=== PATIENT | female | born 1955 | race Caucasian/White ===

== ENCOUNTER 2024-11-23 09:50 | Outpatient (OUT) | payer MEDICARE, SELFPAY ==
--- NOTE | 2024-11-23 10:00 | XR_ITS ---
[facility] [place] [id number] Patient Name: ZAK LYNCH MRN: [id number] date: 1955 Sex: F Assigned Patient Location: [facility] Current Patient Location: [facility] Accession/Order Number: [id number] Exam Date: 11/23/2024 11:55 Report Date: 11/23/2024 11:56 At the request of: KATHERYN TENORIO Procedure: XR ribs LT min 3V w CXR1V PA CHEST WITH 3 VIEWS LEFT RIBS: CLINICAL HISTORY: Fall COMPARISON: None FINDINGS: Heart normal in size. No lung consolidation pneumothorax pleural effusion or free air. No displaced left-sided rib fracture. XR/XR ribs LT min 3V w CXR1V IMPRESSION: No acute findings. Impression dictated by: Rolando Bundy Jr., D.OBelén11/23/2024 11:56 AM Dictation Location: [place] [address] Electronically authenticated by: [id number] Y Date: 11/23/2024 11:56
== END 2024-11-23 09:51 | disposition home or self-care (01) ==
LOC: RAD 09:55
PROVIDERS: PCP Nurse Practitioner Family; Visit Provider Nurse Practitioner Family
DX: R07.81 Pleurodynia (principal); W19.XXXA Unspecified fall, initial encounter
CPT/HCPCS: 71101

== ENCOUNTER 2024-12-03 09:27 | Outpatient (OUT) | payer MEDICARE, SELFPAY ==
--- OUTSIDE RECORDS SUMMARY | 2024-12-03 09:36 | XMS_ITS | CCD ---
Author Organization [facility] Care Team Providers Care Associate Vice President Name Role Phone DR LAURA CASTILLO Admitting Unavailable DR LAURA CASTILLO Attending Unavailable KATHERYN TENORIO Primary Care Unavailable KATHERYN TENORIO Consulting Unavailable KATHERYN TENORIO Admitting Unavailable KATHERYN TENORIO Attending Unavailable KATHERYN TENORIO Primary Care Unavailable Jayden Fofana Consulting Unavailable KATHERYN TENORIO Consulting Unavailable Allergies Allergy Classification Reported Allergen(s) Allergy Type Date of Onset Reaction(s) Facility (1 source) Dextroamphetamine Drug Allergy 5 [facility] Repository Problems Active Problems Problem Classification Problem Date Documented Da te Episodic/Chronic Disorders of lipid metabolism (4 sources) Hyperlipidemia, unspecified; Translations: [HYPERLIPIDEMIA UNSPECIFIED] Onset: 06-22-2022 Chronic Essential hypertension (1 source) Essential (primary) hypertension; Translations: [ESSENTIAL PRIMARY HYPERTENSION] Onset: 06-26-2022 Chronic Osteoporosis (1 source) Age-related osteoporosis without current pathological fracture; Translations: [AGE-REL OSTEOPOR W/O CURR PATH FX] Onset: 12-22-2022 Chronic Other screening for suspected conditions (not mental disorders or infectious disease) (6 sources) Encounter for screening mammogram for malignant neoplasm of breast; Translations: [Encounter for screening for osteoporosis] Onset: 06-26-2022 Episodic Residual codes; unclassified (1 source) Family history of malignant neoplasm of digestive organs; Translations: [FAM HX MALIG NEOPLASM DIGESTIV ORGN] Onset: 12-22-2022 Episodic Substance-related disorders (1 source) Nicotine dependence, cigarettes, uncomplicated; Translations: [NICOTINE DEPEND CIGARETTES UNCOMP] Onset: 06-26-2022 Chronic Past or Other Problems Problem Classification Problem Date Documented Da te Episodic/Chronic Deficiency and other anemia (1 source) Anemia, unspecified; Translations: [ANEMIA UNSPECIFIED] Onset: 06-26-2022 Episodic Diabetes mellitus without complication (1 source) Other abnormal glucose; Translations: [OTHER ABNORMAL GLUCOSE] Onset: 06-26-2022 Episodic Results Test Name Value Interpretation Reference Range Facil ity MG MAMM SCREEN 3D ELBA CADon 12-17-2022 MG MAMM SCREEN 3D ELBA CAD Patient: ZAK LYNCH Exam Date: 12/17/2022 : 1955 Gender:F Ordering : KATHERYN TENORIO [facility] Admission #: [id number] Family : Order #: [id number] CLICK HERE TO VIEW EXAM RADIOLOGY REPORT PROCEDURE: MAMMOGRAM SCREENING 3D BILATERAL CAD COMPARISON: None. INDICATIONS: Screening for malignant neoplasm of breast Calculator Name NCI Breast Cancer Risk Assessment Tool 5 Year Breast Cancer Risk 1.40% Lifetime Breast Cancer Risk 4.20% Personal Breast Cancer No Personal Ovarian Cancer No Treatments None Family Cancers Father with colon cancer at age 65. LOCATION: [facility] BREAST COMPOSITION: Almost entirely fatty. FINDINGS: DIAGNOSTIC CATEGORY 2--BENIGN FINDING: RIGHT BREAST: No significant suspicious finding. LEFT BREAST: No significant suspicious finding. Scattered benign-appearing lymph nodes are present. RECOMMENDATIONS: ROUTINE MAMMOGRAM AND CLINICAL EVALUATION IN 12 MONTHS. PLEASE NOTE: A NORMAL MAMMOGRAM DOES NOT EXCLUDE THE POSSIBILITY OF BREAST CANCER. A CLINICALLY SUSPICIOUS PALPABLE LUMP SHOULD BE BIOPSIED. Dictated by: Jayden Fofana M.D. on 12/17/2022 at 13:08 Approved by: Jayden Fofana M.D. on 12/17/2022 at 13:10 Normal [facility] XR DEXA BONE DENSITYon 12-17 XR DEXA BONE DENSITY EXAMINATION: XR DEX A BONE DENSITY, 12/17/2022 9:08 AM EDT HISTORY: Senile osteoporosis COMPARISON: None. TECHNIQUE: Dual-energy X-ray absorptiometry (DEXA) bone density study performed for the axial skeleton. FINDINGS: SPINE ANALYSIS: Average bone mineral density is 0.911 g/cm2. T-score (standard deviation relative to young adult mean): -2.2 . HIP ANALYSIS: Lowest bone mineral density is within the left femoral neck, 0.692 g/cm2. T-score (standard deviation relative to young adult mean): -2.5 . IMPRESSION: World Sanchez Organization Classification: Osteoporosis - High Fracture Risk Electronically authenticated by: JAYDEN FOFANA Date: 2022-12-17 14:23 Normal [facility] INSULINon 06-24-2022 Insulin 15.8 uIU/mL Normal 2.6-24.9 [facility] Comment on above: Performed By: #### I NSULIN #### [facility] [address] [place] [address] [address] Avani Metzger CBC AUTO DIFFon 06-22-2022 BASO # 0.1 103/ul Normal 0.0-0.1 [facility] Comment on above: Performed By: #### C BC #### [facility] [address] [place] [address] Dr. Avani Metzger Basophils/100 WBC (Bld) 0.9 % Normal 0.2-2.0 [facility] Comment on above: Performed By: #### C BC #### [facility] [address] [place] [address] Dr. Avani Metzger EO # 0.1 103/ul Normal 0.0-0.7 [facility] Comment on above: Performed By: #### C BC #### [facility] [address] [place] [address] Dr. Avani Metzger Eosinophils/100 WBC (Bld) 1.0 % Normal 0.9-7.0 [facility] Comment on above: Performed By: #### C BC #### [facility] [address] [place] [address] Dr. Avani Metzger Erythrocyte distribution width (RBC) [Ratio] 11.9 % Normal 11.0-15.0 [facility] Comment on above: Performed By: #### C BC #### [facility] [address] [place] [address] Dr. Avani Metzger Hematocrit (Bld) [Volume fraction] 44.8 % Normal 36.0-48.0 [facility] Comment on above: Performed By: #### C BC #### [facility] [address] [place] [address] Dr. Avani Metzger Hemoglobin (Bld) [Mass/Vol] 15.5 g/dL Normal 12.0-16.0 [facility] Comment on above: Performed By: #### C BC #### [facility] [address] [place] [address] Dr. Avani Metzger IG # 0.01 10e3/ul Normal 0.00-0.03 [facility] Comment on above: Performed By: #### C BC #### [facility] [address] [place] [address] Dr. Avani Metzger IG % 0.2 % Normal 0.0-0.5 [facility] Comment on above: Performed By: #### C BC #### [facility] [address] [place] [address] Dr. Avani Metzger LYMPH # 2.1 103/ul Normal 1.2-3.8 [facility] Comment on above: Performed By: #### C BC #### [facility] [address] [place] [address] Dr. Avani Metzger Lymphocytes/100 WBC (Bld) 36.2 % Normal 20.5-60.0 [facility] Comment on above: Performed By: #### C BC #### [facility] [address] [place] [address] Dr. Avani Metzger MANUAL DIFF REQ NO Normal [facility] Comment on above: Performed By: #### C BC #### [facility] [address] [place] [address] Dr. Avani Metzegr MCH (RBC) [Entitic mass] 32.3 pg Normal 26.7-34.0 [facility] Comment on above: Performed By: #### C BC #### [facility] [address] [place] [address] Dr. Avani Metzger MCHC (RBC) [Mass/Vol] 34.6 g/dL Normal 29.9-35.2 [facility] Comment on above: Performed By: #### C BC #### [facility] [address] [place] [address] Dr. Avani Metzger MCV (RBC) [Entitic vol] 93.3 fL Normal 81.0-99.0 [facility] Comment on above: Performed By: #### C BC #### [facility] [address] [place] [address] [address] Avani Metzger MONO # 0.4 103/ul Normal 0.3-0.8 [facility] Comment on above: Performed By: #### C BC #### [facility] [address] [place] [address] Dr. Avani Metzger Monocytes/100 WBC (Bld) 7.4 % Normal 1.7-12.0 [facility] Comment on above: Performed By: #### C BC #### [facility] [address] [place] [address] Dr. Avani Metzger NEUT # 3.1 103/ul Normal 1.4-6.5 [facility] Comment on above: Performed By: #### C BC #### [facility] [address] [place] [address] Dr. Avani Metzger Neutrophils/100 WBC (Bld) 54.3 % Normal 43.0-75.0 [facility] Comment on above: Performed By: #### C BC #### [facility] [address] [place] [address] Dr. Avani Metzger Platelet mean volume (Bld) [Entitic vol] 9.4 fL Critically low 9.5-13.5 [facility] Comment on above: Performed By: #### C BC #### [facility] [address] [place] [address] Dr. Avani Metzger PLT 306 103/ul Normal 150-450 [facility] Comment on above: Performed By: #### C BC #### [facility] [address] [place] [address] Dr. Avani Metzger RBC 4.80 106/ul Normal 4.20-5.40 [facility] Comment on above: Performed By: #### C BC #### [facility] [address] [place] [address] Dr. Avani Metzger WBC 5.8 103/ul Normal 4.0-11.0 [facility] Comment on above: Performed By: #### C BC #### [facility] [address] [place] [address] Dr. Avani Metzger FREE THYROXINE INDEX T7on FTI 2.42 Normal 1.30-4.50 [facility] Comment on above: Performed By: #### L IPID, CMP, TSH, T7 #### [facility] [address] [place] [address] [address] Avani Metzger T3U 35.0 % Normal 30.0-39.0 [facility] Comment on above: Performed By: #### L IPID, CMP, TSH, T7 #### [facility] [address] [address] [address] Avani Metzger T4 [Mass/Vol] 6.90 ug/dL Normal 4.80-13.90 [facility] Comment on above: Performed By: #### L IPID, CMP, TSH, T7 #### [facility] [address] [place] [address] [address] Avani Metzger GLYCOHEMOGLOBIN A1Con 2021 ADA RECOMMENDATION SEE BELOW Normal [facility] Comment on above: Result Comment: ADA RECOMMENDED LIMIT 4.0 - 6.0 ADA THERAPEUTIC TARGET < 7.0 ACTION SUGGESTED > 7.0 Performed By: #### A 1C #### [facility] [address] [place] [address] [address] Avani Metzger Glucose [Mass/Vol] 100 mg/dL Normal [facility] Comment on above: Performed By: #### A 1C #### [facility] [address] [place] [address] [address] Avani Metzger HbA1c (Bld) [Mass fraction] 5.1 % Normal 4.5-6.2 [facility] Comment on above: Performed By: #### A 1C #### [facility] [address] [place] [address] [address] Avani Metzger IRONon 06-22-2022 Iron [Mass/Vol] 146.0 ug/dL Normal 50.0-170.0 [facility] Comment on above: Performed By: #### I ALTHEA #### [facility] [address] [address] [address] Avani Metzger LIPID PROFILEon 06-22-2022 CHOL-HDL RATIO NORM SEE BELOW Normal [facility] Comment on above: Result Comment: 3.3 - 4.4 LOW RISK 4.4 - 7.1 AVERAGE RISK 7.1 - 11.0 MODERATE RISK >11.0 HIGH RISK Performed By: #### L IPID, CMP, TSH, T7 #### [facility] [address] [place] [address] [address] Avani Metzger Cholesterol [Mass/Vol] 278 mg/dL Critically high <=200 [facility] Comment on above: Performed By: #### L IPID, CMP, TSH, T7 #### [facility] [address] [place] [address] [address] Avani Metzger Cholesterol in HDL [Mass/Vol] 118 mg/dL Critically high 40-60 [facility] Comment on above: Performed By: #### L IPID, CMP, TSH, T7 #### [facility] [address] [place] [address] [address] Avani Metzger Cholesterol in LDL [Mass/Vol] 146.4 mg/dL Normal [facility] Comment on above: Performed By: #### L IPID, CMP, TSH, T7 #### [facility] [address] [place] [address] [address] Avani Metzger Cholesterol.total/Cho lesterol in HDL [Mass ratio] 2.4 {ratio} Normal [facility] Comment on above: Performed By: #### L IPID, CMP, TSH, T7 #### [facility] [address] [place] [address] [address] Avani Metzger HDL NORMAL > or = 60 mg/dl - LOW CARDIOVASCULAR RISK <40 mg/dl - HIGH CARDIOVASCULAR RISK Normal [facility] Comment on above: Performed By: #### L IPID, CMP, TSH, T7 #### [facility] [address] [place] [address] [address] Avani Metzger LDL CALC NORMAL SEE BELOW Normal [facility] Comment on above: Result Comment: <100 mg/dl OPTIMAL 100 - 129 mg/dl NEAR OR ABOVE OPTIMAL 130 - 159 mg/dl BORDERLINE HIGH 160 - 189 mg/dl HIGH >190 mg/dl VERY HIGH Performed By: #### L IPID, CMP, TSH, T7 #### [facility] [address] [place] [address] [address] Avani Metzger Triglyceride [Mass/Vol] 68 mg/dL Normal <=150 [facility] Comment on above: Performed By: #### L IPID, CMP, TSH, T7 #### [facility] [address] [place] [address] [address] Avani Metzger VLDL CALC 13.6 mg/dL Normal [facility] Comment on above: Performed By: #### L IPID, CMP, TSH, T7 #### [facility] [address] [place] [address] [address] Avani Metzger PROF 14(COMP METB)on 022 Albumin [Mass/Vol] 4.3 g/dL Normal 3.4-5.0 [facility] Comment on above: Performed By: #### L IPID, CMP, TSH, T7 #### [facility] [address] [place] [address] [address] Avani Metzger Albumin/Globulin [Mass ratio] 1.1 {ratio} Normal [facility] Comment on above: Performed By: #### L IPID, CMP, TSH, T7 #### [facility] [address] [place] [address] [address] Avani Metzger ALP [Catalytic activity/Vol] 71 U/L Normal 46-116 [facility] Comment on above: Performed By: #### L IPID, CMP, TSH, T7 #### [facility] [address] [place] [address] [address] Avani Metzger ALT [Catalytic activity/Vol] 58 U/L Normal 14-59 [facility] Comment on above: Performed By: #### L IPID, CMP, TSH, T7 #### [facility] [address] [place] [address] [address] Avani Metzger Anion gap [Moles/Vol] 13.1 mmol/L Normal [facility] Comment on above: Performed By: #### L IPID, CMP, TSH, T7 #### [facility] [address] [place] [address] [address] Avani Metzger AST [Catalytic activity/Vol] 40 U/L Critically high 15-37 [facility] Comment on above: Performed By: #### L IPID, CMP, TSH, T7 #### [facility] [address] [place] [address] [address] Avani Metzger Bilirubin [Mass/Vol] 0.9 mg/dL Normal 0.2-1.0 [facility] Comment on above: Performed By: #### L IPID, CMP, TSH, T7 #### [facility] [address] [address] [address] Avani Metzger Calcium [Mass/Vol] 9.1 mg/dL Normal 8.5-10.1 [facility] Comment on above: Performed By: #### L IPID, CMP, TSH, T7 #### [facility] [address] [place] [address] Dr. Avani Metzger Chloride [Moles/Vol] 98 mmol/L Normal 98-107 [facility] Comment on above: Performed By: #### L IPID, CMP, TSH, T7 #### [facility] [address] [place] [address] Dr. Avani Metzger CO2 [Moles/Vol] 28.5 mmol/L Normal 21.0-32.0 [facility] Comment on above: Performed By: #### L IPID, CMP, TSH, T7 #### [facility] [address] [place] [address] Dr. Avani Metzger Creatinine [Mass/Vol] 0.69 mg/dL Normal 0.55-1.02 [facility] Comment on above: Performed By: #### L IPID, CMP, TSH, T7 #### [facility] [address] [place] [address] Dr. Avani Metzger EGFR-AF BELARUSIAN >60 Normal >=60 [facility] Comment on above: Performed By: #### L IPID, CMP, TSH, T7 #### [facility] [address] [place] [address] Dr. Avani Metzger EGFR-NON AF BELARUSIAN >60 Normal >=60 [facility] Comment on above: Performed By: #### L IPID, CMP, TSH, T7 #### [facility] [address] [address] [address] Avani Metzger Globulin (S) [Mass/Vol] 3.9 g/dL Normal [facility] Comment on above: Performed By: #### L IPID, CMP, TSH, T7 #### [facility] [address] [address] [address] Avani Metzger Glucose [Mass/Vol] 115 mg/dL Critically high 74-[address] [facility] Comment on above: Performed By: #### L IPID, CMP, TSH, T7 #### [facility] [address] [place] [address] Dr. Avani Metzger Potassium [Moles/Vol] 4.6 mmol/L Normal 3.5-5.1 [facility] Comment on above: Performed By: #### L IPID, CMP, TSH, T7 #### [facility] [address] [place] [address] Dr. Avani Metzger Protein [Mass/Vol] 8.2 g/dL Normal 6.4-8.2 [facility] Comment on above: Performed By: #### L IPID, CMP, TSH, T7 #### [facility] [address] [place] [address] Dr. Avani Metzger Sodium [Moles/Vol] 135 mmol/L Critically low 136-145 [facility] Comment on above: Performed By: #### L IPID, CMP, TSH, T7 #### [facility] [address] [place] [address] Dr. Avani Metzger Urea nitrogen [Mass/Vol] 9.0 mg/dL Normal 7.0-18.0 [facility] Comment on above: Performed By: #### L IPID, CMP, TSH, T7 #### [facility] [address] [place] [address] Dr. Avani Metzger Urea nitrogen/Creatinine [Mass ratio] 13.0 mg/mg Normal [facility] Comment on above: Performed By: #### L IPID, CMP, TSH, T7 #### [facility] [address] [place] [address] Dr. Avani Metzger TSHon 06-22-2022 TSH 2.154 uIU/mL Normal 0.358-3.740 [facility] Comment on above: Performed By: #### L IPID, CMP, TSH, T7 #### [facility] [address] [place], [place] [address] Dr. Avani Metzger Encounters Encounter Date Encounter Type Care Provider Facility Start: 12-17-2022 End: 12-18-2022 ambulatory KATHERYN TENORIO Facility:[facility] Start: 06-22-2022 End: 06-23-[address] LAURA LADNA . Facility:[facility] Payers Date Payer Category Payer Medicare [id number] 1961 Unknown [id number] 1955 Unknown [id number] 1955 Unknown [id number] Summary Purpose Family History No Family History Records Found Advance Directives No Advanced Directives Records Found Additional Source Comments INFORMATION SOURCE (unrecogn ized section and content) DATE CREATED AUTHOR 12/22/2022 [facility] FOR RECORDS PERTAINING TO PATIENTS WHO ARE OR HAVE BEEN ENROLLED IN A CHEMICAL DEPENDENCY/SUBSTANCEABUSE PROGRAM, SOME INFORMATION MAY BE OMITTED. This clinical summary was aggregated from multiple sources. Caution should be exercised in using it in the provision of clinical care. This summary normalizes information from multiple sources, and as a consequence, information in this document may materially change the coding, format and clinical context of patient data. In addition, data may be omitted in some cases. CLINICAL DECISIONS SHOULD BE BASED ON THE PRIMARY CLINICAL RECORDS. [facility] [employer] [facility]. provides no warranty or guarantee of the accuracy or completeness of information in this document.
--- NOTE | 2024-12-03 09:42 | XR_ITS ---
[address] [place] [id number] Patient Name: ZAK LYNCH MRN: [id number] date: 1955 Sex: F Assigned Patient Location: [facility] Current Patient Location: [facility] Accession/Order Number: [id number] Exam Date: 12/03/2024 10:29 Report Date: 12/03/2024 10:31 At the request of: KATHERYN TENORIO Procedure: XR shoulder LT min 2V 3 views left shoulder shoulder plain film HISTORY: Acute left shoulder pain. Fell 2 weeks ago. COMPARISON: None ACUTE FINDINGS: No acute displaced fracture. DEGENERATIVE CHANGE: Mild SOFT TISSUE FINDINGS: Unremarkable JOINT EFFUSION: None POSTOP CHANGES: None BONY MINERALIZATION: Adequate XR/XR shoulder LT min 2V IMPRESSION: No acute displaced fracture. Impression dictated by: Jose Carey M.D.12/03/2024 10:31 AM Dictation Location: [facility] Electronically authenticated by: [id number] Y Date: 12/03/2024 10:31
--- NOTE | 2024-12-03 09:42 | XR_ITS ---
The [address] [address] Patient Name: ZAK LYNCH MRN: [id number] date: 1955 Sex: F Assigned Patient Location: [facility] Current Patient Location: [facility] Accession/Order Number: [id number] Exam Date: 12/03/2024 10:28 Report Date: 12/03/2024 10:30 At the request of: KATHERYN TENORIO Procedure: XR scapula LT 2 views left scapula HISTORY: Acute left shoulder pain. Fell 2 weeks ago. Adequate alignment. No acute displaced fracture. No significant degeneration. XR/XR scapula LT IMPRESSION: No acute displaced fracture. Impression dictated by: Jose Carey M.D.12/03/2024 10:30 AM Dictation Location: [place] [address] Electronically authenticated by: [id number] Y Date: 12/03/2024 10:30
== END 2024-12-03 09:28 | disposition home or self-care (01) ==
LOC: RAD 09:33
PROVIDERS: PCP Nurse Practitioner Family; Visit Provider Nurse Practitioner Family
DX: M25.512 Pain in left shoulder (principal); W19.XXXA Unspecified fall, initial encounter
CPT/HCPCS: 73010; 73030

== ENCOUNTER 2025-06-11 09:21 | Outpatient (OUT) | payer MEDICARE, SELFPAY ==
--- OUTSIDE RECORDS SUMMARY | 2025-06-11 09:25 | XMS_ITS | CCD ---
Author Organization [facility] Care Team Providers Care Design Technology Teacher Name Role Phone DR LAURA CASTILLO Admitting Unavailable DR LAURA CASTILLO Attending Unavailable KATHERYN TENORIO Primary Care Unavailable KATHERYN TENORIO Consulting Unavailable KATHERYN TENORIO Admitting Unavailable KATHERYN TENORIO Attending Unavailable KATHERYN TENORIO Primary Care Unavailable Jayden Fofana Consulting Unavailable KATHERYN TENORIO Consulting Unavailable Allergies Allergy Classification Reported Allergen(s) Allergy Type Date of Onset Reaction(s) Facility (1 source) Dextroamphetamine Drug Allergy 5 [facility] Repository Problems Active Problems Problem Classification Problem [...] : 1955 Gender:F Ordering : KATHERYN TENORIO [facility] Admission #: [id number] Family : Order #: [id number] CLICK HERE TO VIEW EXAM RADIOLOGY REPORT PROCEDURE: MAMMOGRAM SCREENING 3D BILATERAL CAD COMPARISON: None. INDICATIONS: Screening for malignant neoplasm of breast Calculator Name NCI Breast Cancer Risk Assessment Tool 5 Year Breast Cancer Risk 1.40% Lifetime Breast Cancer Risk 4.20% Personal Breast Cancer No Personal Ovarian Cancer No Treatments None Family Cancers Father with colon cancer at age 65. LOCATION: [facility] BREAST COMPOSITION: Almost entirely fatty. FINDINGS: DIAGNOSTIC [...] M.D. on 12/17/2022 at 13:10 Normal [facility] XR DEXA BONE DENSITYon 12-17 XR DEXA [...] JAYDEN FOFANA Date: 2022-12-17 14:23 Normal [facility] INSULINon 06-24-2022 Insulin 15.8 uIU/mL Normal 2.6-24.9 [facility] Comment on above: Performed By: #### I NSULIN #### [facility] [address] [address] [address] Avani Metzger CBC AUTO DIFFon 06-22-2022 BASO # 0.1 103/ul Normal 0.0-0.1 [facility] Comment on above: Performed By: #### C BC #### [facility] [address] [place] [address] Dr. Avani Metzger Basophils/100 WBC (Bld) 0.9 % Normal 0.2-2.0 [facility] Comment on above: Performed By: #### C BC #### [facility] [address] [place] [address] Dr. Avani Metzger EO # 0.1 103/ul Normal 0.0-0.7 [facility] Comment on above: Performed By: #### C BC #### [facility] [address] [place] [address] Dr. Avani Metzger Eosinophils/100 WBC (Bld) 1.0 % Normal 0.9-7.0 [facility] Comment on above: Performed By: #### C BC #### [facility] [address] [place] [address] Dr. Avani Metzger Erythrocyte distribution width (RBC) [Ratio] 11.9 % Normal 11.0-15.0 [facility] Comment on above: Performed By: #### C BC #### [facility] [address] [place] [address] Dr. Avani Metzger Hematocrit (Bld) [Volume fraction] 44.8 % Normal 36.0-48.0 [facility] Comment on above: Performed By: #### C BC #### [facility] [address] [place] [address] Dr. Avani Metzger Hemoglobin (Bld) [Mass/Vol] 15.5 g/dL Normal 12.0-16.0 [facility] Comment on above: Performed By: #### C BC #### [facility] [address] [place] [address] Dr. Avani Metzger IG # 0.01 10e3/ul Normal 0.00-0.03 [facility] Comment on above: Performed By: #### C BC #### [facility] [address] [place] [address] Dr. Avani Metzger IG % 0.2 % Normal 0.0-0.5 [facility] Comment on above: Performed By: #### C BC #### [facility] [address] [place] [address] Dr. Avani Metzger LYMPH # 2.1 103/ul Normal 1.2-3.8 [facility] Comment on above: Performed By: #### C BC #### [facility] [address] [place] [address] Dr. Avani Metzger Lymphocytes/100 WBC (Bld) 36.2 % Normal 20.5-60.0 [facility] Comment on above: Performed By: #### C BC #### [facility] [address] [place] [address] Dr. Avani Metzger MANUAL DIFF REQ NO Normal [facility] Comment on above: Performed By: #### C BC #### [facility] [address] [place] [address] Dr. Avani Metzger MCH (RBC) [Entitic mass] 32.3 pg Normal 26.7-34.0 [facility] Comment on above: Performed By: #### C BC #### [facility] [address] [place] [address] Dr. Avani Metzger MCHC (RBC) [Mass/Vol] 34.6 g/dL Normal 29.9-35.2 [facility] Comment on above: Performed By: #### C BC #### [facility] [address] [place] [address] Dr. Avani Metzger MCV (RBC) [Entitic vol] 93.3 fL Normal 81.0-99.0 [facility] Comment on above: Performed By: #### C BC #### [facility] [address] [address] [address] Avani Metzger MONO # 0.4 103/ul Normal 0.3-0.8 [facility] Comment on above: Performed By: #### C BC #### [facility] [address] [place] [address] Dr. Avani Metzger Monocytes/100 WBC (Bld) 7.4 % Normal 1.7-12.0 [facility] Comment on above: Performed By: #### C BC #### [facility] [address] [place] [address] Dr. Avani Metzger NEUT # 3.1 103/ul Normal 1.4-6.5 [facility] Comment on above: Performed By: #### C BC #### [facility] [address] [place] [address] Dr. Avani Metzger Neutrophils/100 WBC (Bld) 54.3 % Normal 43.0-75.0 [facility] Comment on above: Performed By: #### C BC #### [facility] [address] [place] [address] Dr. Avani Metzger Platelet mean volume (Bld) [Entitic vol] 9.4 fL Critically low 9.5-13.5 [facility] Comment on above: Performed By: #### C BC #### [facility] [address] [place] [address] Dr. Avani Metzger PLT 306 103/ul Normal 150-450 [facility] Comment on above: Performed By: #### C BC #### [facility] [address] [place] [address] Dr. Avani Metzger RBC 4.80 106/ul Normal 4.20-5.40 [facility] Comment on above: Performed By: #### C BC #### [facility] [address] [place] [address] Dr. Avani Metzger WBC 5.8 103/ul Normal 4.0-11.0 [facility] Comment on above: Performed By: #### C BC #### [facility] [address] [place] [address] Dr. Avani Metzger FREE THYROXINE INDEX T7on FTI 2.42 Normal 1.30-4.50 [facility] Comment on above: Performed By: #### L IPID, CMP, TSH, T7 #### [facility] [address] [address] [address] Avani Metzger T3U 35.0 % Normal 30.0-39.0 [facility] Comment on above: Performed By: #### L IPID, CMP, TSH, T7 #### [facility] [address] [address] [address] Avani Metzger T4 [Mass/Vol] 6.90 ug/dL Normal 4.80-13.90 [facility] Comment on above: Performed By: #### L IPID, CMP, TSH, T7 #### [facility] [address] [address] [address] Avani Metzger GLYCOHEMOGLOBIN A1Con 2021 ADA RECOMMENDATION SEE BELOW Normal [facility] Comment on above: Result Comment: ADA RECOMMENDED LIMIT 4.0 - 6.0 ADA THERAPEUTIC TARGET < 7.0 ACTION SUGGESTED > 7.0 Performed By: #### A 1C #### [facility] [address] [address] [address] Avani Metzger Glucose [Mass/Vol] 100 mg/dL Normal [facility] Comment on above: Performed By: #### A 1C #### [facility] [address] [address] [address] Avani Metzger HbA1c (Bld) [Mass fraction] 5.1 % Normal 4.5-6.2 [facility] Comment on above: Performed By: #### A 1C #### [facility] [address] [address] [address] Avani Metzger IRONon 06-22-2022 Iron [Mass/Vol] 146.0 ug/dL Normal 50.0-170.0 [facility] Comment on above: Performed By: #### I ALTHEA #### [facility] [address] [address] [address] Avani Metzger LIPID PROFILEon 06-22-2022 CHOL-HDL RATIO NORM SEE BELOW Normal [facility] Comment on above: Result Comment: 3.3 - 4.4 LOW RISK 4.4 - 7.1 AVERAGE RISK 7.1 - 11.0 MODERATE RISK >11.0 HIGH RISK Performed By: #### L IPID, CMP, TSH, T7 #### [facility] [address] [address] [address] Avani Metzger Cholesterol [Mass/Vol] 278 mg/dL Critically high <=200 [facility] Comment on above: Performed By: #### L IPID, CMP, TSH, T7 #### [facility] [address] [address] [address] Avani Metzger Cholesterol in HDL [Mass/Vol] 118 mg/dL Critically high 40-60 [facility] Comment on above: Performed By: #### L IPID, CMP, TSH, T7 #### [facility] [address] [address] [address] Avani Metzger Cholesterol in LDL [Mass/Vol] 146.4 mg/dL Normal [facility] Comment on above: Performed By: #### L IPID, CMP, TSH, T7 #### [facility] [address] [address] [address] Avani Metzger Cholesterol.total/Cho lesterol in HDL [Mass ratio] 2.4 {ratio} Normal [facility] Comment on above: Performed By: #### L IPID, CMP, TSH, T7 #### [facility] [address] [address] [address] Avani Metzger HDL NORMAL > or = 60 mg/dl - LOW CARDIOVASCULAR RISK <40 mg/dl - HIGH CARDIOVASCULAR RISK Normal [facility] Comment on above: Performed By: #### L IPID, CMP, TSH, T7 #### [facility] [address] [address] [address] Avani Metzger LDL CALC NORMAL SEE BELOW Normal [facility] Comment on above: Result Comment: <100 mg/dl OPTIMAL 100 - 129 mg/dl NEAR OR ABOVE OPTIMAL 130 - 159 mg/dl BORDERLINE HIGH 160 - 189 mg/dl HIGH >190 mg/dl VERY HIGH Performed By: #### L IPID, CMP, TSH, T7 #### [facility] [address] [address] [address] Avani Metzger Triglyceride [Mass/Vol] 68 mg/dL Normal <=150 [facility] Comment on above: Performed By: #### L IPID, CMP, TSH, T7 #### [facility] [address] [address] [address] Avani Metzger VLDL CALC 13.6 mg/dL Normal [facility] Comment on above: Performed By: #### L IPID, CMP, TSH, T7 #### [facility] [address] [address] [address] Avani Metzger PROF 14(COMP METB)on 022 Albumin [Mass/Vol] 4.3 g/dL Normal 3.4-5.0 [facility] Comment on above: Performed By: #### L IPID, CMP, TSH, T7 #### [facility] [address] [address] [address] Avani Metzger Albumin/Globulin [Mass ratio] 1.1 {ratio} Normal [facility] Comment on above: Performed By: #### L IPID, CMP, TSH, T7 #### [facility] [address] [address] [address] Avani Metzger ALP [Catalytic activity/Vol] 71 U/L Normal 46-116 [facility] Comment on above: Performed By: #### L IPID, CMP, TSH, T7 #### [facility] [address] [address] [address] Avani Metzger ALT [Catalytic activity/Vol] 58 U/L Normal 14-59 [facility] Comment on above: Performed By: #### L IPID, CMP, TSH, T7 #### [facility] [address] [address] [address] Avani Metzger Anion gap [Moles/Vol] 13.1 mmol/L Normal [facility] Comment on above: Performed By: #### L IPID, CMP, TSH, T7 #### [facility] [address] [address] [address] Avani Metzger AST [Catalytic activity/Vol] 40 U/L Critically high 15-37 [facility] Comment on above: Performed By: #### L IPID, CMP, TSH, T7 #### [facility] [address] [address] [address] Avani Metzger Bilirubin [Mass/Vol] 0.9 mg/dL Normal 0.2-1.0 [facility] Comment on above: Performed By: #### L IPID, CMP, TSH, T7 #### [facility] [address] [address] [address] Avani Metzger Calcium [Mass/Vol] 9.1 mg/dL Normal 8.5-10.1 [facility] Comment on above: Performed By: #### L IPID, CMP, TSH, T7 #### [facility] [address] [place] [address] Dr. Avani Metzger Chloride [Moles/Vol] 98 mmol/L Normal 98-107 [facility] Comment on above: Performed By: #### L IPID, CMP, TSH, T7 #### [facility] [address] [place] [address] Dr. Avani Metzger CO2 [Moles/Vol] 28.5 mmol/L Normal 21.0-32.0 [facility] Comment on above: Performed By: #### L IPID, CMP, TSH, T7 #### [facility] [address] [place] [address] Dr. Avani Metzger Creatinine [Mass/Vol] 0.69 mg/dL Normal 0.55-1.02 [facility] Comment on above: Performed By: #### L IPID, CMP, TSH, T7 #### [facility] [address] [place] [address] Dr. Avani Metzger EGFR-AF OMANI >60 Normal >=60 [facility] Comment on above: Performed By: #### L IPID, CMP, TSH, T7 #### [facility] [address] [place] [address] Dr. Avani Metzger EGFR-NON AF OMANI >60 Normal >=60 [facility] Comment on above: Performed By: #### L IPID, CMP, TSH, T7 #### [facility] [address] [address] [address] Avani Metzger Globulin (S) [Mass/Vol] 3.9 g/dL Normal [facility] Comment on above: Performed By: #### L IPID, CMP, TSH, T7 #### [facility] [address] [address] [address] Avani Metzger Glucose [Mass/Vol] 115 mg/dL Critically high 74-106 [facility] Comment on above: Performed By: #### L IPID, CMP, TSH, T7 #### [facility] [address] [place] [address] Dr. Avani Metzger Potassium [Moles/Vol] 4.6 mmol/L Normal 3.5-5.1 [facility] Comment on above: Performed By: #### L IPID, CMP, TSH, T7 #### [facility] [address] [place] [address] Dr. Avani Metzger Protein [Mass/Vol] 8.2 g/dL Normal 6.4-8.2 [facility] Comment on above: Performed By: #### L IPID, CMP, TSH, T7 #### [facility] [address] [place] [address] Dr. Avani Metzger Sodium [Moles/Vol] 135 mmol/L Critically low 136-145 [facility] Comment on above: Performed By: #### L IPID, CMP, TSH, T7 #### [facility] [address] [place] [address] Dr. Avani Metzger Urea nitrogen [Mass/Vol] 9.0 mg/dL Normal 7.0-18.0 [facility] Comment on above: Performed By: #### L IPID, CMP, TSH, T7 #### [facility] [address] [place] [address] Dr. Avani Metzger Urea nitrogen/Creatinine [Mass ratio] 13.0 mg/mg Normal [facility] Comment on above: Performed By: #### L IPID, CMP, TSH, T7 #### [facility] [address] [place] [address] Dr. Avani Metzger TSHon 06-22-2022 TSH 2.154 uIU/mL Normal 0.358-3.[address] [facility] Comment on above: Performed By: #### L IPID, CMP, TSH, T7 #### [facility] [address] [place], [place] [address] Dr. Avani Metzger Encounters Encounter Date Encounter Type Care Provider Facility Start: 12-17-2022 End: 12-18-2022 ambulatory KATHERYN TENORIO Facility:[facility] Start: 06-22-2022 End: 06-23-[address] LAURA LANDA . Facility:[facility] Payers Date Payer Category Payer Medicare [id number] 1961 Unknown [id number] 1955 Unknown [id number] 1955 Unknown [id number] Summary Purpose Family History No Family History Records Found Advance Directives No Advanced Directives Records Found Additional Source Comments INFORMATION SOURCE (unrecogn ized section and content) DATE CREATED AUTHOR 12/22/2022 [facility] FOR RECORDS PERTAINING TO PATIENTS WHO ARE [...] BE BASED ON THE PRIMARY CLINICAL RECORDS. [facility]. provides no warranty or guarantee of the accuracy or completeness of information in this document.
--- OUTSIDE RECORDS SUMMARY | 2025-06-11 09:25 | XMS_ITS | Patient Health Record ---
Author Organization [facility] in [place] Address [address] [place] [address] Care Team Providers Care Door Machine Operator Name Role Phone Ghada Elena Primary Care Provider Allergies Allergen (clinical drug ingredient) Drug/Non Drug Allergy documented on EMR Reaction Allergy Type Onset Date Status amoxicillin / clavulanate Augmentin hives Drug Allergy Active rosuvastatin Crestor hives Drug Allergy Acti ve Results Component Value Reference Range Notes XR ribs LT min 3V w CXR1V Reviewed date:11/23/2024 01:35:03 PM Interpretation: Performing Lab: Notes/Report: Source Facility: [place] [address] XRay Report Signed Patient: JENNIFER LYNCH MR#: [id number] : 1955 Acct:[id number] Age/Sex: 69 / F ADM Date: 11/23/24 Loc: RAD Attending Dr: GHADA ELENA Ordering Physician: GHADA ELENA Date of Service: 11/23/24 Procedure(s): XR ribs LT min 3V w CXR1V Accession Number(s): [id number] cc: GHADA ELENA [place] [address] Patient Name: JENNIFER LYNCH MRN: [facility]:[id number] date: 1955 Sex: F Assigned Patient Location: RAD Current Patient Location: RAD Accession/Order Number: [id number] Exam Date: 11/23/2024 11:55 Report Date: 11/23/2024 11:56 At the request of: GHADA ELENA Procedure: XR ribs LT min 3V w CXR1V PA CHEST WITH 3 VIEWS LEFT RIBS: CLINICAL HISTORY: Fall COMPARISON: None FINDINGS: Heart normal in size. No lung consolidation pneumothorax pleural effusion or free air. No displaced left-sided rib fracture. XR/XR ribs LT min 3V w CXR1V IMPRESSION: No acute findings. Impression dictated by: Rolando Bundy Jr., DDeann11/23/2024 11:56 AM Dictation Location: [place] [address] Electronically authenticated by: [id number] Y Date: 11/23/2024 11:56 Dictated By: Rolando Bundy M.D. Signed By: 11/23/24 1158 DD/ 1156 TD/TT: Formula Checker: XR scapula LT Reviewed date:12/03/2024 02:48:44 PM Interpretation: Performing Lab: Notes/Report: Source Facility: [place] [address] XRay Report Signed Patient: JENNIFER LYNCH MR#: [id number] : 1955 Acct:[id number] Age/Sex: 69 / F ADM Date: 12/03/24 Loc: [facility] Attending Dr: GHADA ELENA Ordering Physician: GHADA ELENA Date of Service: 12/03/24 Procedure(s): XR scapula LT Accession Number(s): [id number] cc: GHADA ELENA [place] [id number] Patient Name: JENNIFER LYNCH MRN: [id number] date: 1955 Sex: F Assigned Patient Location: [facility] Current Patient Location: [facility] Accession/Order Number: [id number] Exam Date: 12/03/2024 10:28 Report Date: 12/03/2024 10:30 At the request of: GHADA ELENA Procedure: XR scapula LT 2 views left scapula HISTORY: Acute left shoulder pain. Fell 2 weeks ago. Adequate alignment. No acute displaced fracture. No significant degeneration. XR/XR scapula LT IMPRESSION: No acute displaced fracture. Impression dictated by: Jose Carey M.D.12/03/2024 10:30 AM Dictation Location: [place] [address] Electronically authenticated by: [id number] Y Date: 12/03/2024 10:30 Dictated By: Jose Carey D.O. Signed By: 12/03/24 1032 DD/ 1030 TD/TT: Formula Checker: XR shoulder LT min 2V Reviewed date:12/03/2024 02:47:59 PM Interpretation: Performing Lab: Notes/Report: Source Facility: [place] [address] XRay Report Signed Patient: JENNIFER LYNCH MR#: [id number] : 1955 Acct:[id number] Age/Sex: 69 / F ADM Date: 12/03/24 Loc: RAD Attending Dr: GHADA ELENA Ordering Physician: GHADA ELENA Date of Service: 12/03/24 Procedure(s): XR shoulder LT min 2V Accession Number(s): [id number] cc: GHADA ELENA [place] [id number] Patient Name: JENNIFER LYNCH MRN: [id number] date: 1955 Sex: F Assigned Patient Location: [facility] Current Patient Location: [facility] Accession/Order Number: [id number] Exam Date: 12/03/2024 10:29 Report Date: 12/03/2024 10:31 At the request of: GHADA ELENA Procedure: XR shoulder LT min 2V 3 views left shoulder shoulder plain film HISTORY: Acute left shoulder pain. Fell 2 weeks ago. COMPARISON: None ACUTE FINDINGS: No acute displaced fracture. DEGENERATIVE CHANGE: Mild SOFT TISSUE FINDINGS: Unremarkable JOINT EFFUSION: None POSTOP CHANGES: None BONY MINERALIZATION: Adequate XR/XR shoulder LT min 2V IMPRESSION: No acute displaced fracture. Impression dictated by: Jose Carey M.D.12/03/2024 10:31 AM Dictation Location: [place] [address] Electronically authenticated by: [id number] Y Date: 12/03/2024 10:31 Dictated By: Jose Carey D.O. Signed By: 12/03/24 1033 DD/ 1031 TD/TT: Formula Checker: Reason For Referral No Information Medications Medication SIG (Take, Route, Frequency, Duration) Notes Start Date End Date Status Calcium 600 MG 1 tablet with a meal Orally once a day Active Vitamin D3 50 MCG (1999) 1 capsule Orally Once a day Active Social History Tobacco Use: Social History Observation Description Date Details (start date - stop date) Current Smoker NA - NA Tobacco Use/Smoking Question Answer Notes Patient is a current smoker How many cigarettes a day do you smoke? 31 or mo re AUDIT-C (Standard) Question Answer Notes Did you have a drink contain ing alcohol in the past year? Yes How often did you have a dri nk containing alcohol in the past year? Monthly or less (1 point) How many drinks did you have on a typical day when you were drinking in the past year? 3 or 4 drinks (1 point) How often did you have six o r more drinks on one occasion in the past year? 2 to 3 times per week (3 points) Points 5 Interpretation Positive Problems Problem Type SNOMED Code ICD Code Onset Dates Problem Status W/U Status Risk Notes Problem Raynaud's disease (038186057) Raynauds phenomenon (I73.00) Active confirmed Vital Signs Blood pressure diastolic 72 mm Hg 06/09/2025 Height 67 in 06/09/2025 Blood pressure systolic 132 mm Hg 06/09/2025 Weight 124 lbs 06/09/2025 BMI 19.42 kg/m2 06/09/2025 Encounters Encounter Location Date Provider Diagnosis [facility] [address] [place] [address] 11/23/2024 Ghada Elena Hematoma of arm, left, initial encounter S40.022A and Fall W19.XXXA [facility] [address] [place] [address] 12/02/2024 Ghada Elena Left shoulder pain M25.512 and Fall W19.XXXA [facility] [address] [facility] [place] [address] 06/09/2025 Ghada Elena Weight loss R63.4 an d Raynauds phenomenon I73.00 [facility] [address] [facility] [place] [address] 11/23/2024 Ghada Elena [facility] [address] [facility] [place] [address] 12/02/2024 Ghada Elena [facility] [address] [facility] [place] [address] 12/03/2024 Ghada Elena [facility] [address] [facility] [place] [address] 05/20/2025 Ghada Elena Assessments Encounter Date Diagnosis (ICD Code) Assessment Notes Treatment Notes Treatment Clinical Notes Section Notes 11/23/2024 Hematoma of arm, left, initial encounter (ICD-10 - S40.022A) 11/23/2024 Fall (ICD-10 - W19.XXXA) defers CT head no blood thinners discussed moderation with alcohol fu as needed 12/02/2024 Left shoulder pain (ICD-10 - M25.512) 12/02/2024 Fall (ICD-10 - W19.XXXA) still with pain left posterior shoulder, shoulder blade left side under armpit, upper rib cage US? 06/09/2025 Weight loss (ICD-10 - R63.4) continue to monitor wt, fu if continues to lose increase protein, add snacks only eating 2 meals day right now, add breakfast protein drinks 06/09/2025 Raynauds phenomenon (ICD-10 - I73.00) discussed continue monitor 11/23/2024 Other encouraged wellness visit, has been awhile 06/09/2025 Other discussed preventive testing, encouraged mammogram, CT lung screening, cologuard defers all at this time Plan Of Treatment Pending Test Test Name Order Date HEMOGLOBIN A1C (GLYCO) 06/09/2025 IRON, TOTAL 06/09/2025 LIPID PANEL (CHOL/TRIG/HDL/LDL) 06/09/20 25 VITAMIN D, 25 LEVEL (TOTAL) 06/09/2025 XR Scapula LT (2 views) * 12/02/2024 Insulin Level 06/09/2025 US Chest Soft Tissue Superficial 025 XR SHOULDER LT 2V or > 12/02/2024 THYROID PANEL (T4/TSH/FREE T3) 5 XR ribs LT 2V 11/23/2024 CMP (COMP MET MALLORY) w/eGFR CKD-EPI 2024 CBC WITH DIFF 06/09/2025 Insurance Providers Payer Name Payer Address Payer Phone Subscriber Number Group Number Insured Name Patient Relationship to Insured Coverage Start Date Coverage End Date [employer] [address] [place] [address] [id number] Jennifer Lynch Self - patient is the insured Medical (General) History Surgical History Surgery Date(Month/Year) 2 teeth pulled 05/02
--- OUTSIDE RECORDS SUMMARY | 2025-06-11 09:25 | XMS_ITS | Clinical Summary ---
Author Organization [facility] Address [address], [address] [place] [address] Care Team Providers Care Fire Control Technician B Name Role Phone Unavailable Primary Care Provider Unavailabl e Allergies Active Allergy Reactions Criticality Noted Date Comments Lipitor 08/12/2013 Medications aspirin 325 MG tabletIndicatio ns:Vaginal atrophy,PMB (postmenopausal bleeding) Take 325 mg by mouth daily. Active conjugated estrogens (PREMARIN) vaginal creamIndication s:Vaginal atrophy,PMB (postmenopausal bleeding) Place 0.5 g vaginally every 72 hours as needed. 1 Tube 3 3 Active estradiol (ESTRACE VAGINAL) 0.1 MG/GM vaginal cream Place 1 g vaginally daily. 1 Tube 3 3 Active Family History Medical History Relation Name Comments Colon Cancer Father Stroke Maternal Grandfather Heart Failure Maternal Grandmother High Blood Pressure Mother Relation Name Status Comments Father Alive Maternal Grandfather Maternal Grandmother Mother Alive Social History Tobacco Use Types Packs/Day Years Used Date Smoking Tobacco: Every Day Alcohol Use Standard Drinks/Week Comments Yes 0 (1 standard drink = 0.6 oz pur e alcohol) Comments No Sex and Gender Information Value Date Recorded Sex Assigned at Not on file Legal Sex Female 3:24 PM EST Gender Identity Not on file Sexual Orientation Not on file Last Filed Vital Signs Vital Sign Reading Time Taken Comments Blood Pressure 144/84 08/12/2013 2:17 PM EST Pulse - - Temperature - - Respiratory Rate - - Oxygen Saturation - - Inhaled Oxygen Concentration - - Weight 71.2 kg (157 lb) 08/12/2013 2:17 PM EST Height 170.2 cm (5' 7 ) 08/12/2013 2:17 PM EST Body Mass Index 24.59 08/12/2013 2:17 PM EST Plan of Treatment Not on file
[2025-06-11 10:15] LABS: Hematocrit 42.4 % (36.0-48.0); Hemoglobin 14.6 g/dL (12.0-16.0); Immature Granulocytes Abs Auto 0.01 10^3/uL (0.00-0.03); Immature Granulocytes Pct Auto 0.2 % (0.0-0.5); Lymphocytes Absolute Auto 1.5 10^3/uL (1.2-3.8); Mean Corpuscular HGB Conc 34.4 g/dL (29.9-35.2); Mean Corpuscular Hemoglobin 33.4 pg (26.7-34.0); Mean Corpuscular Volume 97.0 fL (81.0-99.0); Platelet Count 256 10^3/uL (150-450); Red Blood Count 4.37 10^6/uL (4.20-5.40); White Blood Count 4.2 10^3/uL (4.0-11.0)
[2025-06-11 11:15] LABS: Alanine Aminotransferase 56 U/L (14-59); Albumin Globulin Ratio 1.2; Albumin Level 4.5 g/dL (3.4-5.0); Alkaline Phosphatase 62 U/L (46-116); Anion Gap 12.8; Aspartate Amino Transferase 46 U/L (15-37); Blood Urea Nitrogen 7.0 mg/dL (7.0-18.0); Calcium 9.2 mg/dL (8.5-10.1); Carbon Dioxide 29.6 mmol/L (21.0-32.0); Chloride 96 mmol/L (98-107); Cholesterol 239 mg/dL (<=200); Estimated GFR (African America >60 (>=60 mL/min/1.73m^2); Estimated GFR (Non-African Ame >60 (>=60 mL/min/1.73m^2); Free T3 2.47 pg/mL (2.18-3.98); Globulin 3.9 g/dL; Glucose 124 mg/dL (74-106); HDL Cholesterol 126 mg/dL (40-60); Potassium 4.4 mmol/L (3.5-5.1); Sodium 134 mmol/L (136-145); Thyroid Stimulating Hormone 1.427 uIU/mL (0.358-3.740); Total Protein 8.4 g/dL (6.4-8.2); Triglycerides 62 mg/dL (<=150); VLDL CHOLESTEROL 12.4 mg/dL
[2025-06-11 11:22] LABS: Iron 187.0 ug/dL (50.0-170.0)
== END 2025-06-11 09:22 | disposition home or self-care (01) ==
LOC: LAB 09:23
PROVIDERS: PCP Nurse Practitioner Family; Visit Provider Nurse Practitioner Family
DX: R63.4 Abnormal weight loss (principal); E78.5 Hyperlipidemia, unspecified; R73.09 Other abnormal glucose; R53.83 Other fatigue; E55.9 Vitamin D deficiency, unspecified
CPT/HCPCS: 36415; 80053; 80061; 82306; 83036; 83525; 83540; 84436; 84443; 84481; 85025

== ENCOUNTER 2025-07-25 09:15 | Outpatient (OUT) | payer MEDICARE, SELFPAY ==
--- OUTSIDE RECORDS SUMMARY | 2025-07-25 09:20 | XMS_ITS | CCD ---
Author Organization [facility] Care Team Providers Care Global Technical Writer Name Role Phone DR LAURA CASTILLO Admitting Unavailable DR LAURA CASTILLO Attending Unavailable KATHERYN TENORIO Primary Care Unavailable KATHERYN TENORIO Consulting Unavailable KATHERYN TENORIO Admitting Unavailable KATHERYN TENORIO Attending Unavailable KATHERYN TENORIO Primary Care Unavailable Jayden Fofana Consulting Unavailable KATHERYN TENORIO Consulting Unavailable Allergies Allergy ClassificationReported Allergen(s)Allergy TypeDate of OnsetReaction(s) Facility (1 source)DextroamphetamineDrug Illdfjw57-82-8182UatK[facility] Rep[facility] Problems Active Problems Problem ClassificationProblemDateDocumented DateEpisodic/ChronicDisorders of lipid metabolism (4 sources)Hyperlipidemia, unspecified; Translations: [HYPERLIPIDEMIA UNSPECIFIED]Onset: 20-94-5505QkwmyugNbiffyysl hypertension (1 source)Essential (primary) hypertension; Translations: [ESSENTIAL PRIMARY HYPERTENSION]Onset: 94-99-8953SlifulvNxabuzsafgal (1 source)Age-related osteoporosis without current pathological fracture; Translations: [AGE-REL OSTEOPOR W/OCURR PATH FX]Onset: 80-44-2856NfsunbfJvyrr screening for suspected conditions (not mental disorders or infectious disease) (6 sources)Encounter for screening mammogram for malignant neoplasm of breast; Translations: [Encounter for screening for osteoporosis]Onset: 06-26-2022 EpisodicResidual codes; unclassified (1 source)Family history of malignant neoplasm of digestive organs; Translations: [FAM HX MALIG NEOPLASM DIGESTIV ORGN]Onset: 65-00-1548Qrpytnvf Substance-related disorders (1 source)Nicotine dependence, cigarettes, uncomplicated; Translations: [NICOTINE DEPEND CIGARETTES UNCOMP]Onset: 58-48-0768Nqsfpls Past or Other Problems Problem ClassificationProblemDateDocumented DateEpisodic/ChronicDeficiency and other anemia (1 source)Anemia, unspecified; Translations: [ANEMIA UNSPECIFIED]Onset: 50-83-5130YvlduznjErwsiegz mellitus without complication (1 source)Other abnormal glucose; Translations: [OTHER ABNORMAL GLUCOSE]Onset: 08-41-3274Rbyjjnen Results Test NameValueInterpretationReference RangeFacilityMG MAMM SCREEN 3D ELBA CADon [id number] MAMM SCREEN 3D ELBA CADPatient: ZAK LYNCH Exam Date: 12/17/2022 : 1955 Gender:F Ordering : KATHERYN TENORIO [facility] Admission #: [id number] Family : Order #: [id number] CLICK HERE TO VIEW EXAM RADIOLOGY REPORT PROCEDURE: MAMMOGRAM SCREENING 3D BILATERAL CAD COMPARISON: None. INDICATIONS: Screening for malignant neoplasm of breast Calculator Name NCI Breast Cancer Risk Assessment Tool 5 Year Breast Cancer Risk 1.40% Lifetime Breast Cancer Risk 4.20% Personal Breast Cancer No Personal Ovarian Cancer No Treatments None Family Cancers Father with colon cancer at age 65. LOCATION: [facility] BREAST COMPOSITION: Almost entirely fatty. FINDINGS: DIAGNOSTIC [...] by: Jayden Fofana M.D. on 12/17/2022 at 13:10[facility] HospitalXR DEXA BONE DENSITYon 62-17-4880KG DEXA BONE DENSITYEXAMINATION: XR DEXA BONE DENSITY, 12/17/2022 9:08 AM EDT HISTORY: [...] Electronically authenticated by: JAYDEN FOFANA Date: 2022-12-17 14:23[facility] City HospitalINSULINon 79-08-1895Rzqlcna68.8 uIU/mLNormal2.6-24.9The [facility] HospitalComment on above:Performed By: #### INSULIN #### [facility] [address] [place] [address] Dr. Avani Lundy AUTO DIFFon 25-82-5675LWUN #0.1 103/ulNormal0.0-0.1The [facility] HospitalComment on above:Performed By: #### CBC #### [facility] [address] [place] [address] Dr. Avani MetzgerBasophils/100 WBC (Bld)0.9 %Normal0.2-2.0[facility] Comment on above:Performed By: #### CBC #### [facility] [address] [place] [address] Dr. Avani Bowling #0.1 103/ulNormal0.0-0.7The [facility] HospitalComment on above: Performed By: #### CBC #### [facility] [address] [place] [address] Dr. Avani Damonosinophils/100 WBC (Bld)1.0 %Normal0.9-7.0[facility] Comment on above:Performed By: #### CBC #### [facility] [address] [place] [address] Dr. Avani Damonrythrocyte distribution width (RBC) [Ratio]11.9 %Gbkzhu54.0-15.0 The [facility] HospitalComment on above:Performed By: #### CBC #### [facility] [address] [place] [address] Dr. Avani MetzgerHematocrit (Bld) [Volume fraction]44.8 %Aohfid87.0-48.0The [facility] HospitalComment on above:Performed By: #### CBC #### [facility] [address] [place] [address] Dr. Avani MetzgerHemoglobin (Bld) [Mass/Vol]15.5 g/uRUqaabo03.0-16.0The [facility] on above:Performed By: #### CBC #### [facility] [address] [place] [address] Dr. Avani Martinez #0.01 10e3/ulNormal0.00-0.03The [facility] HospitalComment on above:Performed By: #### CBC #### [facility] [address] [place] [address] Dr. Avani Martinez %0.2 %Normal0.0-0.5The [facility] HospitalComrehabilitation [facility] [place] on above: Performed By: #### CBC #### [facility] [address] [place] [address] Dr. Avani Barr #2.1 103/ulNormal1.2-3.8The [facility] HospitalComment on above:Performed By: #### CBC #### [facility] [address] [place] [address] Dr. Avani Nolascohocytes/100 WBC (Bld)36.2 %Rdcfee10.5-60.0The [facility] HospitalComrehabilitation [facility] [place] on above:Performed By: #### CBC #### [facility] [address] [place] [address] Dr. Avani CarvajalUAL DIFF REQNONormalThe [facility] HospitalComment on above: Performed By: #### CBC #### [facility] [address] [place] [address] Dr. Avani Rogers (RBC) [Entitic mass]32.3 sfCzxqer10.7-34.0The [facility] HospitalComment on above:Performed By: #### CBC #### [facility] [address] [place] [address] Dr. Avani Rogers (RBC) [Mass/Vol]34.6 g/rDDslpbz29.9-35.2The [facility] HospitalComment on above:Performed By: #### CBC #### [facility] [address] [address] [address] Avani RogersV (RBC) [Entitic vol]93.3 fAAdeaub14.0-99.0The [facility] Centerment on above:Performed By: #### CBC #### [facility] [address] [place] [address] Dr. Avani Daniel #0.4 103/ulNormal0.3-0.8The [facility] HospitalComment on above:Performed By: #### CBC #### [facility] [address] [place] [address] Dr. Avani Higueraocytes/100 WBC (Bld)7.4 %Normal1.7-12.0The [facility] Comment on above:Performed By: #### CBC #### [facility] [address] [place] [address] Dr. Avani Díaz #3.1 103/ulNormal1.4-6.5The [facility] HospitalComment on above:Performed By: #### CBC #### [facility] [address] [place] [address] Dr. Avani Sheridanutrophils/100 WBC (Bld)54.3 %Qlkxdl22.0-75.0The [facility] HospitalComment on above:Performed By: #### CBC #### [facility] [address] [place] [address] Dr. Avani Ungerlet mean volume (Bld) [Entitic vol]9.4 fLCritically low 9.5-13.5The [facility] Centerment on above:Performed By: #### CBC #### [facility] [address] [place] [address] Dr. Avani MetzgerPLT306 103/slPbrtcp782-466Cof [facility] HospitalComment on above: Performed By: #### CBC #### [facility] [address] [place] [address] Dr. Avani MetzgerRBC4.80 106/ulNormal4.20-5.40The [facility] HospitalComment on above:Performed By: #### CBC #### [facility] [address] [address] [address] Avani MetzgerWBC5.8 103/ulNormal4.0-11.0The [facility] HospitalComment on above: Performed By: #### CBC #### [facility] [address] [address] [address] Avani MetzgerFRBAN THYROXINE INDEX T7on 44-40-7359BKF8.68Cohquz0.30-4.50The [facility] HospitalComment on above:Performed By: #### LIPID, CMP, TSH, T7 #### [facility] [address] [address] [address] Avani MetzgerT3U35.0 %Lkmuvh65.0-39.0The [facility] HospitalComment on above: Performed By: #### LIPID, CMP, TSH, T7 #### [facility] [address] [place] [address] Dr. Avani MetzgerT4 [Mass/Vol]6.90 ug/dLNormal4.80-13.90The [facility] Comment on above:Performed By: #### LIPID, CMP, TSH, T7 #### [facility] [address] [place] [address] Dr. Avani MetzgerGLYCOHEMOGLOBIN A1Con 33-11-1324GYN RECOMMENDATIONSEE BELOWNormal The [facility] HospitalComment on above:Result Comment: ADA RECOMMENDED LIMIT 4.0 - 6.0 ADA THERAPEUTIC TARGET < 7.0 ACTION SUGGESTED > 7.0Performed By: #### A1C #### [facility] [address] [place] [address] Dr. Avani MetzgerGlucose [Mass/Vol]100 mg/dLNormalThe [facility] HospitalComment on above:Performed By: #### A1C #### [facility] [address] [place] [address] Dr. Avani MetzgerHbA1c (Bld) [Mass fraction]5.1 %Normal4.5-6.2The [facility] HospitalComment on above:Performed By: #### A1C #### [facility] [address] [address] [address] Avani Porter 15-39-4804Amsf [Mass/Vol]146.0 ug/tRQyvgtq50.0-170.0[facility] on above:Performed By: #### IRON #### [facility] [address] [address] [address] Avani BoltonID PROFILEon 66-12-9678YHBR-HDL RATIO NORMSEE BELOWZanesville City HospitalComrehabilitation institute of [place] on above:Result Comment: 3.3 - 4.4 LOW RISK 4.4 - 7.1 AVERAGE RISK 7.1 - 11.0 MODERATE RISK >11.0 HIGH RISKPerformed By: #### LIPID, CMP, TSH, T7 #### [facility] [address] [place] [address] Dr. Avani Arroyoesterol [Mass/Vol]278 mg/dLCritically high<=200The [facility] on above:Performed By: #### LIPID, CMP, TSH, T7 #### [facility] [address] [place] [address] Dr. Avani Arroyoesterol in HDL [Mass/Vol]118 mg/dLCritically qril82-51Pkx [facility] on above:Performed By: #### LIPID, CMP, TSH, T7 #### [facility] [address] [place] [address] Dr. Avani Arroyoesterol in LDL [Mass/Vol]146.4 mg/dLKettering Health Dayton on above:Performed By: #### LIPID, CMP, TSH, T7 #### [facility] [address] [place] [address] Dr. Avani Mares.total/Cholesterol in HDL [Mass ratio]2.4 {ratio} NormalThe [facility] on above:Performed By: #### LIPID, CMP, TSH, T7 #### [facility] [address] [place] [address] Dr. Avani Banks NORMAL> or = 60 mg/dl - LOW CARDIOVASCULAR RISK <40 mg/dl - HIGH CARDIOVASCULAR RISKNormalThe [facility] HospitalComment on above:Performed By: #### LIPID, CMP, TSH, T7 #### [facility] [address] [address] [address] Avani Hicks CALC NORMALSEE BELOWZanesville City HospitalComment on above:Result Comment: <100 mg/dl OPTIMAL 100 - 129 mg/dl NEAR OR ABOVE OPTIMAL 130 - 159 mg/dl BORDERLINE HIGH 160 - 189 mg/dl HIGH >190 mg/dl VERY HIGH Performed By: #### LIPID, CMP, TSH, T7 #### [facility] [address] [address] [address] Avani MetzgerTriglyceride [Mass/Vol]68 mg/dLNormal<=150The [facility] Comment on above:Performed By: #### LIPID, CMP, TSH, T7 #### [facility] [address] [address] [address] Avani MetzgerVLDL CALC13.6 mg/dLNoBethesda North HospitalComment on above: Performed By: #### LIPID, CMP, TSH, T7 #### [facility] [address] [address] [address] Avani MetzgerPROF 14(COMP METB)on 24-28-1287Yawdskc [Mass/Vol]4.3 g/dLNormal 3.4-5.0The [facility] on above:Performed By: #### LIPID, CMP, TSH, T7 #### [facility] [address] [address] [address] Avani MetzgerAlbumin/Globulin [Mass ratio]1.1 {ratio}NormalThe [facility] on above:Performed By: #### LIPID, CMP, TSH, T7 #### [facility] [address] [address] [address] Avani Diaz [Catalytic activity/Vol]71 U/DBbccdn64-066Ywi [facility] on above:Performed By: #### LIPID, CMP, TSH, T7 #### [facility] [address] [address] [address] Avani Gonzáles [Catalytic activity/Vol]58 U/DNzlumy38-77Bcv [facility] Centerment on above:Performed By: #### LIPID, CMP, TSH, T7 #### [facility] [address] [address] [address] Avani Freed gap [Moles/Vol]13.1 mmol/LNormalKettering Health Springfield Comment on above:Performed By: #### LIPID, CMP, TSH, T7 #### [facility] [address] [address] [address] Avani MetzgerAST [Catalytic activity/Vol]40 U/LCritically lxtm69-12XzgKettering Health SpringfieldComment on above:Performed By: #### LIPID, CMP, TSH, T7 #### [facility] [address] [place] [address] Dr. Avani MetzgerBilirubin [Mass/Vol]0.9 mg/dLNormal0.2-1.0[facility] Comment on above:Performed By: #### LIPID, CMP, TSH, T7 #### [facility] [address] [place] [address] Dr. Avani MetzgerCalcium [Mass/Vol]9.1 mg/dLNormal8.5-10.1[facility] Comment on above:Performed By: #### LIPID, CMP, TSH, T7 #### [facility] [address] [place] [address] Dr. Avani MetzgerChloride [Moles/Vol]98 mmol/MIijlhi26-644QojKettering Health Springfield Comment on above:Performed By: #### LIPID, CMP, TSH, T7 #### [facility] [address] [place] [address] Dr. Avani MetzgerCO2 [Moles/Vol]28.5 mmol/JXjmilv05.0-32.0[facility] Comment on above:Performed By: #### LIPID, CMP, TSH, T7 #### [facility] [address] [place] [address] Dr. Avani MetzgerCreatinine [Mass/Vol]0.69 mg/dLNormal0.55-1.02The [facility] HospitalComment on above:Performed By: #### LIPID, CMP, TSH, T7 #### [facility] [address] [address] [address] Avani DamonGFR-AF BURKINAN>60Normal>=60The [facility] Centerment on above:Performed By: #### LIPID, CMP, TSH, T7 #### [facility] [address] [address] [address] Avani DamonGFR-NON AF BURKINAN>60Normal>=60The [facility] HospitalComment on above:Performed By: #### LIPID, CMP, TSH, T7 #### [facility] [address] [address] [address] Avani MetzgerGlobulin (S) [Mass/Vol]3.9 g/dLNormalThe [facility] HospitalComment on above:Performed By: #### LIPID, CMP, TSH, T7 #### [facility] [address] [place] [address] Dr. Avani MetzgerGlucose [Mass/Vol]115 mg/dLCritically eejm77-475Cay [facility] HospitalComment on above:Performed By: #### LIPID, CMP, TSH, T7 #### [facility] [address] [address] [address] Avani MetzgerPotassium [Moles/Vol]4.6 mmol/LNormal3.5-5.1The [facility] Comment on above:Performed By: #### LIPID, CMP, TSH, T7 #### [facility] [address] [address] [address] Avani MetzgerProtein [Mass/Vol]8.2 g/dLNormal6.4-8.2The [facility] Comment on above:Performed By: #### LIPID, CMP, TSH, T7 #### [facility] [address] [address] [address] Avani MetzgerSodium [Moles/Vol]135 mmol/LCritically atp904-502Stg [facility] Centerment on above:Performed By: #### LIPID, CMP, TSH, T7 #### [facility] [address] [address] [address] Avani MetzgerUrea nitrogen [Mass/Vol]9.0 mg/dLNormal7.0-18.0The [facility] HospitalComment on above:Performed By: #### LIPID, CMP, TSH, T7 #### [facility] [address] [place], [place] [address] Dr. Avani MetzgerUrea nitrogen/Creatinine [Mass ratio]13.0 mg/mgNormalThe [facility] HospitalComment on above:Performed By: #### LIPID, CMP, TSH, T7 #### [facility] [address] [place], [place] [address] Dr. Avani MetzgerTSHorasheeda 68-91-7597MXC7.154 uIU/mLNormal0.358-3.740The [facility] HospitalComment on above:Performed By: #### LIPID, CMP, TSH, T7 #### [facility] [address] [place], [place] [address] Dr. Avani Metzger Encounters Encounter DateEncounter TypeCare ProviderFacilityStart: 12-17-2022 End: 13-06-8873nzxkylfnzgMNRZUE CRAMERFacility:W1Eugkq: 06-22-2022 End: 15-28-4725aevdofijrtKB LAURA THADLeonid .Facility: Payers DatePayer CategoryPayerPolicy [id number] 1962Unknown [id number] Summary Purpose Family History No Family History Records Found Advance Directives No Advanced Directives Records Found Additional Source Comments INFORMATION SOURCE (unrecogn ized section and content) DATE CREATED AUTHOR 12/22/2022 [facility] FOR RECORDS PERTAINING TO PATIENTS WHO [...] BE BASED ON THE PRIMARY CLINICAL RECORDS. [facility] [employer] [facility]. provides no warranty or guarantee of the accuracy or completeness of information in this document.
[2025-07-25 10:11] LABS: Alanine Aminotransferase 44 U/L (14-59); Albumin Globulin Ratio 1.2; Albumin Level 4.1 g/dL (3.4-5.0); Alkaline Phosphatase 59 U/L (46-116); Anion Gap 12.5; Aspartate Amino Transferase 36 U/L (15-37); Blood Urea Nitrogen 5.0 mg/dL (7.0-18.0); Calcium 9.3 mg/dL (8.5-10.1); Carbon Dioxide 30.9 mmol/L (21.0-32.0); Chloride 96 mmol/L (98-107); Estimated GFR (African America >60 (>=60 mL/min/1.73m^2); Estimated GFR (Non-African Ame >60 (>=60 mL/min/1.73m^2); Globulin 3.4 g/dL; Glucose 118 mg/dL (74-106); Potassium 4.4 mmol/L (3.5-5.1); Sodium 135 mmol/L (136-145); Total Protein 7.5 g/dL (6.4-8.2)
== END 2025-07-25 09:16 | disposition home or self-care (01) ==
LOC: LAB 09:16
PROVIDERS: PCP Nurse Practitioner Family; Visit Provider Nurse Practitioner Family
DX: I10 Essential (primary) hypertension (principal)
CPT/HCPCS: 36415; 80053